=== PATIENT | female | born 1940 | race Two or more races ===

== ENCOUNTER 2018-06-24 17:58 | Observation (INO) | payer MEDICARE ==
[~2018-06-24] VITALS: Ht 149.9 cm; Wt 81.4 kg
[2018-06-24 19:27] LABS: BASOPHILS # (AUTO) 0.02 x10^3/uL (0-0.1); BASOPHILS % (AUTO) 0 % (0-1); EOSINOPHILS # (AUTO) 0.12 x10^3/uL (0-0.4); EOSINOPHILS % (AUTO) 2 % (1-7); LYMPHOCYTES # (AUTO) 1.94 x10^3/uL (1-3.4); LYMPHOCYTES % (AUTO) 31 % (22-44); MD NO; MEAN CORPUSCULAR HEMOGLOBIN 31.5 pg (27.0-34.8); MEAN CORPUSCULAR HGB CONC 34.4 g/dL (32.4-35.8); MEAN CORPUSCULAR VOLUME 91.6 fL (80-100); MEAN PLATELET VOLUME 9.2 fL (7.4-10.4); MONOCYTES # (AUTO) 0.43 x10^3/uL (0.2-0.8); MONOCYTES % (AUTO) 7 % (2-9); NEUTROPHILS # (AUTO) 3.78 x10^3/uL (1.8-6.8); NEUTROPHILS % (AUTO) 60 % (42-75); PLATELET COUNT 178 x10^3/uL (130-400)
[2018-06-24 19:33] LABS: ALBUMIN 3.6 g/dL (3.4-5.0); ANION GAP 9 mmol/L (5-15); CALCIUM 8.4 mg/dL (8.5-10.1); CHLORIDE 107 mmol/L (98-107); CREATININE 1.23 mg/dL (0.55-1.02)
[2018-06-24 19:36] LABS: ALANINE AMINOTRANSFERASE 24 U/L (12-78); ALKALINE PHOSPHATASE 94 U/L (45-117); BILIRUBIN,TOTAL 0.3 mg/dL (0.2-1.0); TOTAL PROTEIN 8.1 g/dL (6.4-8.2)
[2018-06-24 19:47] LABS: MICROSCOPIC AUTO
[2018-06-24 19:48] LABS: CULTURE INDICATED? YES
[2018-06-24] MEDS ORDERED: LEVO88TA4 PO (20:32)
[2018-06-24] MEDS ORDERED: AMLO2.5T3 PO (20:32)
[2018-06-24] MEDS ORDERED: DONE5TAB52 PO (20:32)
[2018-06-24] MEDS ORDERED: ESCI20TA PO (20:32)
[2018-06-24] MEDS ORDERED: MEMA10TA PO (20:32)
[2018-06-24] MEDS ORDERED: QUET200T PO (20:32)
[2018-06-24] MEDS ORDERED: [UNRECOGNIZED DRUG - OTHER] PO (20:43)
[2018-06-24] MEDS ORDERED: SODIUM CHLORIDE FLUSH 10ML SYR IVF PRN (21:00)
[2018-06-24 22:10] VITALS: BP 148/84
[2018-06-24] MEDS ORDERED: SODIUM CHLORIDE 0.9% 1,000 ML IV SCH (22:44)
[2018-06-24] MEDS ORDERED: BISACODYL 10 MG SUPP PR PRN (23:00)
[2018-06-24] MEDS ORDERED: POLYETHYLENE GLYCOL 17 GM PACKET PO PRN (23:00)
[2018-06-24] MEDS ORDERED: hydrALAzine 20 MG/ML, 1ML IVPush PRN (23:00)
[2018-06-24] MEDS ORDERED: DOCUSATE 100 MG CAPSULE PO PRN (23:00)
[2018-06-24] MEDS ORDERED: GABAPENTIN 300 MG CAPSULE PO PRN (23:00)
[2018-06-24] MEDS ORDERED: LABETALOL 5MG/ML, 20ML IVPush PRN (23:00)
[2018-06-24] MEDS: QUETIAPINE 200 MG TABLET PO SCH (23:20)
[2018-06-24] MEDS: MEMANTINE 10MG TABLET PO SCH (23:20)
[2018-06-24] MEDS: DONEPEZIL 5 MG TABLET PO SCH (23:20)
[2018-06-24 23:26] LABS: FREE T4 (FREE THYROXINE) 0.9 ng/dL (0.76-1.46); THYROID STIMULATING HORMONE 1.04 mIU/L (0.358-3.740)
[2018-06-25 01:23] VITALS: BP 109/67
[2018-06-25 05:33] LABS: CHOL/HDL RATIO 5.4; LDL/HDL RATIO 2.9 (0.5-3.0)
[2018-06-25 06:58] VITALS: BP 118/72
[2018-06-25] MEDS: AMLODIPINE 2.5 MG TABLET PO SCH (08:57)
[2018-06-25] MEDS: MEMANTINE 10MG TABLET PO SCH ×2 (08:57→20:21)
[2018-06-25] MEDS: TEMPLATE NON-FORMULARY MED. (Escitalopram Oxalate** 20 MG) HOMEMEDPO SCH (08:57)
[2018-06-25] MEDS: LEVOTHYROXINE 88 MCG TABLET PO SCH (08:57)
[2018-06-25 12:21] LABS: ANION GAP 9 mmol/L (5-15); CALCIUM 8.6 mg/dL (8.5-10.1); CHLORIDE 110 mmol/L (98-107)
[2018-06-25 12:23] LABS: CREATININE 1.08 mg/dL (0.55-1.02)
[2018-06-25 12:56] VITALS: BP 110/68
[2018-06-25 19:56] VITALS: BP 138/78
[2018-06-25] MEDS: QUETIAPINE 200 MG TABLET PO SCH (20:21)
[2018-06-25] MEDS: DONEPEZIL 5 MG TABLET PO SCH (20:21)
[2018-06-26 01:16] VITALS: BP 121/74
[2018-06-26 05:37] LABS: CHLORIDE 111 mmol/L (98-107)
[2018-06-26 05:46] LABS: ANION GAP 9 mmol/L (5-15); CALCIUM 8.3 mg/dL (8.5-10.1); CREATININE 1.02 mg/dL (0.55-1.02)
[2018-06-26] MEDS: LEVOTHYROXINE 88 MCG TABLET PO SCH (06:14)
[2018-06-26 07:02] VITALS: BP 107/67
[2018-06-26] MEDS: TEMPLATE NON-FORMULARY MED. (Escitalopram Oxalate** 20 MG) HOMEMEDPO SCH (09:00)
[2018-06-26] MEDS: MEMANTINE 10MG TABLET PO SCH ×2 (10:05→20:43)
[2018-06-26] MEDS: AMLODIPINE 2.5 MG TABLET PO SCH (10:05)
[2018-06-26 12:55] VITALS: BP 105/66
[2018-06-26 20:10] VITALS: BP 137/77
[2018-06-26] MEDS: DONEPEZIL 5 MG TABLET PO SCH (20:43)
[2018-06-26] MEDS: ATORVASTATIN 10 MG TABLET PO SCH (20:43)
[2018-06-26] MEDS: QUETIAPINE 200 MG TABLET PO SCH (20:43)
[2018-06-27 01:45] VITALS: BP 104/61
[2018-06-27 07:19] VITALS: BP 108/69
[2018-06-27] MEDS: LEVOTHYROXINE 88 MCG TABLET PO SCH (07:58)
[2018-06-27] MEDS: CITALOPRAM 20 MG TABLET PO SCH (08:00)
[2018-06-27] MEDS: MEMANTINE 10MG TABLET PO SCH ×3 (08:00→20:11)
[2018-06-27] MEDS: AMLODIPINE 2.5 MG TABLET PO SCH (08:02)
[2018-06-27] MEDS: ACETAMINOPHEN 325 MG TABLET PO PRN (08:55)
[2018-06-27 12:55] VITALS: BP 117/66
[2018-06-27 14:45] VITALS: BP 128/70
[2018-06-27 18:50] VITALS: BP 133/72
[2018-06-27] MEDS: DONEPEZIL 5 MG TABLET PO SCH ×2 (20:05→20:11)
[2018-06-27] MEDS: ATORVASTATIN 10 MG TABLET PO SCH (20:05)
[2018-06-27] MEDS: QUETIAPINE 200 MG TABLET PO SCH ×2 (20:05→20:11)
[2018-06-28 01:27] VITALS: BP 156/74
[2018-06-28 06:44] VITALS: BP 146/76
[2018-06-28] MEDS: LEVOTHYROXINE 88 MCG TABLET PO SCH (07:45)
[2018-06-28] MEDS: AMLODIPINE 2.5 MG TABLET PO SCH (07:46)
[2018-06-28] MEDS: MEMANTINE 10MG TABLET PO SCH ×2 (07:48→21:00)
[2018-06-28] MEDS: CITALOPRAM 20 MG TABLET PO SCH (07:48)
[2018-06-28 13:10] VITALS: BP 125/75
[2018-06-28 19:25] VITALS: BP 143/82
[2018-06-28] MEDS: ATORVASTATIN 10 MG TABLET PO SCH (20:58)
[2018-06-28] MEDS: DONEPEZIL 5 MG TABLET PO SCH (21:00)
[2018-06-28] MEDS: QUETIAPINE 200 MG TABLET PO SCH (21:00)
[2018-06-29 01:15] VITALS: BP 152/71
[2018-06-29] MEDS: AMLODIPINE 2.5 MG TABLET PO SCH (07:53)
[2018-06-29] MEDS: LEVOTHYROXINE 88 MCG TABLET PO SCH (07:53)
[2018-06-29] MEDS: CITALOPRAM 20 MG TABLET PO SCH (07:56)
[2018-06-29] MEDS: MEMANTINE 10MG TABLET PO SCH ×2 (07:56→20:28)
[2018-06-29 08:12] VITALS: BP 171/78
[2018-06-29] MEDS: CALCIUM CARBONATE 500 MG TAB.CHEW PO PRN ×2 (12:35→20:26)
[2018-06-29 12:50] VITALS: BP 146/73
[2018-06-29 18:53] VITALS: BP 136/75
[2018-06-29] MEDS: DONEPEZIL 5 MG TABLET PO SCH (20:28)
[2018-06-29] MEDS: QUETIAPINE 200 MG TABLET PO SCH (20:28)
[2018-06-29] MEDS: ATORVASTATIN 10 MG TABLET PO SCH (20:28)
[2018-06-30 01:15] VITALS: BP 108/67
[2018-06-30 06:55] VITALS: BP 117/60
[2018-06-30] MEDS: LEVOTHYROXINE 88 MCG TABLET PO SCH (07:53)
[2018-06-30] MEDS: AMLODIPINE 2.5 MG TABLET PO SCH (07:53)
[2018-06-30] MEDS: MEMANTINE 10MG TABLET PO SCH ×2 (07:53→20:02)
[2018-06-30] MEDS: CITALOPRAM 20 MG TABLET PO SCH (07:53)
[2018-06-30 12:40] VITALS: BP 128/69
[2018-06-30 19:24] VITALS: BP 116/71
[2018-06-30] MEDS: QUETIAPINE 200 MG TABLET PO SCH (20:02)
[2018-06-30] MEDS: DONEPEZIL 5 MG TABLET PO SCH (20:02)
[2018-06-30] MEDS: ATORVASTATIN 10 MG TABLET PO SCH (20:02)
[2018-07-01 01:05] VITALS: BP 121/60
[2018-07-01] MEDS: AMLODIPINE 2.5 MG TABLET PO SCH (08:14)
[2018-07-01] MEDS: LEVOTHYROXINE 88 MCG TABLET PO SCH (08:14)
[2018-07-01] MEDS: MEMANTINE 10MG TABLET PO SCH ×2 (08:14→22:19)
[2018-07-01 08:57] VITALS: BP 93/62
[2018-07-01 14:08] VITALS: BP 116/74
[2018-07-01 19:18] VITALS: BP 127/69
[2018-07-01] MEDS: QUETIAPINE 200 MG TABLET PO SCH (22:19)
[2018-07-01] MEDS: DONEPEZIL 5 MG TABLET PO SCH (22:19)
[2018-07-01] MEDS: ATORVASTATIN 10 MG TABLET PO SCH (22:19)
[2018-07-01] MEDS: CALCIUM CARBONATE 500 MG TAB.CHEW PO PRN (23:40)
[2018-07-02 00:17] VITALS: BP 101/52
[2018-07-02] MEDS: MEMANTINE 10MG TABLET PO SCH ×2 (08:39→21:32)
[2018-07-02] MEDS: AMLODIPINE 2.5 MG TABLET PO SCH (08:40)
[2018-07-02] MEDS: LEVOTHYROXINE 88 MCG TABLET PO SCH (08:40)
[2018-07-02 08:41] VITALS: BP 107/69
[2018-07-02 13:26] VITALS: BP 113/68
[2018-07-02 18:55] VITALS: BP 118/62
[2018-07-02] MEDS: DONEPEZIL 5 MG TABLET PO SCH (21:31)
[2018-07-02] MEDS: QUETIAPINE 200 MG TABLET PO SCH (21:31)
[2018-07-02] MEDS: ATORVASTATIN 10 MG TABLET PO SCH (21:31)
[2018-07-03 01:14] VITALS: BP 109/52
[2018-07-03 05:00] LABS: BASOPHILS # (AUTO) 0.03 x10^3/uL (0-0.1); BASOPHILS % (AUTO) 0 % (0-1); EOSINOPHILS # (AUTO) 0.42 x10^3/uL (0-0.4); EOSINOPHILS % (AUTO) 6 % (1-7); LYMPHOCYTES # (AUTO) 3.42 x10^3/uL (1-3.4); LYMPHOCYTES % (AUTO) 45 % (22-44); MD NO; MEAN CORPUSCULAR HEMOGLOBIN 31.4 pg (27.0-34.8); MEAN CORPUSCULAR VOLUME 92.2 fL (80-100); MEAN PLATELET VOLUME 9.4 fL (7.4-10.4); MONOCYTES # (AUTO) 0.55 x10^3/uL (0.2-0.8); MONOCYTES % (AUTO) 7 % (2-9); NEUTROPHILS # (AUTO) 3.21 x10^3/uL (1.8-6.8); NEUTROPHILS % (AUTO) 42 % (42-75); PLATELET COUNT 197 x10^3/uL (130-400); RED BLOOD COUNT 4.13 x10^6/uL (3.82-5.3); RED CELL DISTRIBUTION WIDTH 14.6 % (9.6-15.2)
[2018-07-03 05:08] LABS: ALBUMIN 3.5 g/dL (3.4-5.0); ANION GAP 10 mmol/L (5-15); CALCIUM 8.6 mg/dL (8.5-10.1); CHLORIDE 110 mmol/L (98-107)
[2018-07-03 05:09] LABS: CREATININE 1.14 mg/dL (0.55-1.02)
[2018-07-03 08:00] VITALS: BP 105/64
[2018-07-03] MEDS: AMLODIPINE 2.5 MG TABLET PO SCH (08:19)
[2018-07-03] MEDS: MEMANTINE 10MG TABLET PO SCH ×2 (08:19→21:05)
[2018-07-03] MEDS: LEVOTHYROXINE 88 MCG TABLET PO SCH (08:19)
[2018-07-03 15:26] VITALS: BP 116/72
[2018-07-03 19:09] VITALS: BP 125/71
[2018-07-03] MEDS: CALCIUM CARBONATE 500 MG TAB.CHEW PO PRN (21:04)
[2018-07-03] MEDS: QUETIAPINE 200 MG TABLET PO SCH (21:05)
[2018-07-03] MEDS: DONEPEZIL 5 MG TABLET PO SCH (21:05)
[2018-07-03] MEDS: ATORVASTATIN 10 MG TABLET PO SCH (21:05)
[2018-07-04 01:37] VITALS: BP 113/68
[2018-07-04 07:16] VITALS: BP 118/58
[2018-07-04] MEDS: AMLODIPINE 2.5 MG TABLET PO SCH (07:30)
[2018-07-04] MEDS: LEVOTHYROXINE 88 MCG TABLET PO SCH (07:30)
[2018-07-04] MEDS: MEMANTINE 10MG TABLET PO SCH ×2 (07:30→20:06)
[2018-07-04 12:11] VITALS: BP 141/76
[2018-07-04 19:07] VITALS: BP 121/72
[2018-07-04] MEDS: DONEPEZIL 5 MG TABLET PO SCH (20:06)
[2018-07-04] MEDS: ATORVASTATIN 10 MG TABLET PO SCH (20:06)
[2018-07-04] MEDS: QUETIAPINE 200 MG TABLET PO SCH (20:06)
[2018-07-05 01:44] VITALS: BP 126/60
[2018-07-05 06:54] VITALS: BP 118/61
[2018-07-05] MEDS: MEMANTINE 10MG TABLET PO SCH ×2 (07:53→21:04)
[2018-07-05] MEDS: AMLODIPINE 2.5 MG TABLET PO SCH (07:53)
[2018-07-05] MEDS: LEVOTHYROXINE 88 MCG TABLET PO SCH (07:53)
[2018-07-05] MEDS: PANTOPROZOLE 40MG TABLET PO SCH (10:33)
[2018-07-05] MEDS: LIDODERM 5% PATCH TD SCH (10:33)
[2018-07-05] MEDS: CALCIUM CARBONATE 500 MG TAB.CHEW PO PRN ×2 (11:12→19:26)
[2018-07-05 12:19] VITALS: BP 106/52
[2018-07-05 19:00] VITALS: BP 134/70
[2018-07-05] MEDS: ACETAMINOPHEN 325 MG TABLET PO PRN (19:26)
[2018-07-05] MEDS: ATORVASTATIN 10 MG TABLET PO SCH (21:03)
[2018-07-05] MEDS: QUETIAPINE 100MG TABLET PO SCH (21:04)
[2018-07-05] MEDS: DONEPEZIL 5 MG TABLET PO SCH (21:04)
[2018-07-06 01:30] VITALS: BP 111/55
[2018-07-06 07:50] VITALS: BP 105/60
[2018-07-06] MEDS: AMLODIPINE 2.5 MG TABLET PO SCH (08:33)
[2018-07-06] MEDS: PANTOPROZOLE 40MG TABLET PO SCH (08:33)
[2018-07-06] MEDS: MEMANTINE 10MG TABLET PO SCH ×2 (08:34→19:55)
[2018-07-06] MEDS: LEVOTHYROXINE 88 MCG TABLET PO SCH (08:34)
[2018-07-06] MEDS: LIDODERM 5% PATCH TD SCH (08:35)
[2018-07-06 08:37] VITALS: BP 116/66
[2018-07-06 12:20] VITALS: BP 116/53
[2018-07-06 19:05] VITALS: BP 126/68
[2018-07-06] MEDS: QUETIAPINE 100MG TABLET PO SCH (19:54)
[2018-07-06] MEDS: DONEPEZIL 5 MG TABLET PO SCH (19:55)
[2018-07-06] MEDS: ATORVASTATIN 10 MG TABLET PO SCH (19:55)
[2018-07-07 01:46] VITALS: BP 120/74
[2018-07-07 07:27] VITALS: BP 134/78
[2018-07-07] MEDS: LIDODERM 5% PATCH TD SCH (09:00)
[2018-07-07] MEDS: AMLODIPINE 2.5 MG TABLET PO SCH (09:05)
[2018-07-07] MEDS: LEVOTHYROXINE 88 MCG TABLET PO SCH (09:05)
[2018-07-07] MEDS: PANTOPROZOLE 40MG TABLET PO SCH (09:06)
[2018-07-07] MEDS: MEMANTINE 10MG TABLET PO SCH ×2 (09:06→21:36)
[2018-07-07 13:16] VITALS: BP 126/71
[2018-07-07 19:03] VITALS: BP 121/64
[2018-07-07] MEDS: DONEPEZIL 5 MG TABLET PO SCH (21:36)
[2018-07-07] MEDS: ATORVASTATIN 10 MG TABLET PO SCH (21:36)
[2018-07-07] MEDS: QUETIAPINE 100MG TABLET PO SCH (21:36)
[2018-07-08 01:38] VITALS: BP 98/53
[2018-07-08 07:47] VITALS: BP 114/68
[2018-07-08] MEDS: AMLODIPINE 2.5 MG TABLET PO SCH (08:43)
[2018-07-08] MEDS: PANTOPROZOLE 40MG TABLET PO SCH (08:43)
[2018-07-08] MEDS: LEVOTHYROXINE 88 MCG TABLET PO SCH (08:43)
[2018-07-08] MEDS: MEMANTINE 10MG TABLET PO SCH ×3 (08:43→20:13)
[2018-07-08] MEDS: LIDODERM 5% PATCH TD SCH (08:44)
[2018-07-08 12:56] VITALS: BP 119/72
[2018-07-08 18:58] VITALS: BP 127/58
[2018-07-08] MEDS: QUETIAPINE 100MG TABLET PO SCH ×2 (20:10→20:13)
[2018-07-08] MEDS: ATORVASTATIN 10 MG TABLET PO SCH (20:10)
[2018-07-08] MEDS: DONEPEZIL 5 MG TABLET PO SCH ×2 (20:10→20:13)
[2018-07-09 00:39] VITALS: BP 134/80
[2018-07-09 07:04] VITALS: BP 138/74
[2018-07-09] MEDS: PANTOPROZOLE 40MG TABLET PO SCH (09:09)
[2018-07-09] MEDS: MEMANTINE 10MG TABLET PO SCH ×2 (09:10→20:31)
[2018-07-09] MEDS: AMLODIPINE 2.5 MG TABLET PO SCH (09:10)
[2018-07-09] MEDS: LEVOTHYROXINE 88 MCG TABLET PO SCH (09:10)
[2018-07-09] MEDS: LIDODERM 5% PATCH TD SCH (09:10)
[2018-07-09 12:28] VITALS: BP 127/73
[2018-07-09 19:08] VITALS: BP 128/75
[2018-07-09] MEDS: ATORVASTATIN 10 MG TABLET PO SCH (20:31)
[2018-07-09] MEDS: QUETIAPINE 100MG TABLET PO SCH (20:31)
[2018-07-09] MEDS: DONEPEZIL 5 MG TABLET PO SCH (20:31)
[2018-07-10 01:31] VITALS: BP 127/64
[2018-07-10 07:04] VITALS: BP 80/44
[2018-07-10 07:21] VITALS: BP 103/63
[2018-07-10] MEDS: LEVOTHYROXINE 88 MCG TABLET PO SCH (07:30)
[2018-07-10 08:57] VITALS: BP 92/49
[2018-07-10] MEDS: MEMANTINE 10MG TABLET PO SCH ×2 (08:59→20:49)
[2018-07-10] MEDS: PANTOPROZOLE 40MG TABLET PO SCH (08:59)
[2018-07-10] MEDS: AMLODIPINE 2.5 MG TABLET PO SCH (09:00)
[2018-07-10 13:40] VITALS: BP 118/56
[2018-07-10 18:36] VITALS: BP 98/64
[2018-07-10] MEDS: ATORVASTATIN 10 MG TABLET PO SCH (20:49)
[2018-07-10] MEDS: DONEPEZIL 5 MG TABLET PO SCH (20:49)
[2018-07-10] MEDS: QUETIAPINE 100MG TABLET PO SCH (20:49)
[2018-07-10] MEDS: LIDODERM 5% PATCH TD SCH (20:50)
[2018-07-11 01:07] VITALS: BP 107/62
[2018-07-11 06:50] VITALS: BP 120/72
[2018-07-11] MEDS: AMLODIPINE 2.5 MG TABLET PO SCH (07:40)
[2018-07-11] MEDS: LEVOTHYROXINE 88 MCG TABLET PO SCH (07:40)
[2018-07-11] MEDS: PANTOPROZOLE 40MG TABLET PO SCH (07:40)
[2018-07-11] MEDS: MEMANTINE 10MG TABLET PO SCH ×2 (07:40→21:33)
[2018-07-11 13:35] VITALS: BP 113/59
[2018-07-11 19:22] VITALS: BP 126/69
[2018-07-11] MEDS: LIDODERM 5% PATCH TD SCH (21:29)
[2018-07-11] MEDS: DONEPEZIL 5 MG TABLET PO SCH (21:30)
[2018-07-11] MEDS: ATORVASTATIN 10 MG TABLET PO SCH (21:30)
[2018-07-11] MEDS: QUETIAPINE 100MG TABLET PO SCH (21:30)
[2018-07-12 02:00] VITALS: BP 109/55
[2018-07-12 06:56] VITALS: BP 111/70
[2018-07-12] MEDS: LEVOTHYROXINE 88 MCG TABLET PO SCH (08:17)
[2018-07-12] MEDS: PANTOPROZOLE 40MG TABLET PO SCH (08:17)
[2018-07-12] MEDS: MEMANTINE 10MG TABLET PO SCH ×2 (08:17→21:46)
[2018-07-12] MEDS: AMLODIPINE 2.5 MG TABLET PO SCH (08:17)
[2018-07-12 12:02] VITALS: BP 134/74
[2018-07-12 20:25] VITALS: BP 130/76
[2018-07-12] MEDS: QUETIAPINE 100MG TABLET PO SCH (21:46)
[2018-07-12] MEDS: ATORVASTATIN 10 MG TABLET PO SCH (21:46)
[2018-07-12] MEDS: DONEPEZIL 5 MG TABLET PO SCH (21:47)
[2018-07-12] MEDS: LIDODERM 5% PATCH TD SCH (21:48)
[2018-07-13 01:20] VITALS: BP 156/75
[2018-07-13 06:50] VITALS: BP 125/74
[2018-07-13] MEDS: MEMANTINE 10MG TABLET PO SCH ×2 (07:45→19:47)
[2018-07-13] MEDS: LEVOTHYROXINE 88 MCG TABLET PO SCH (07:45)
[2018-07-13] MEDS: PANTOPROZOLE 40MG TABLET PO SCH (07:45)
[2018-07-13] MEDS: AMLODIPINE 2.5 MG TABLET PO SCH (07:45)
[2018-07-13 12:59] VITALS: BP 103/61
[2018-07-13 19:34] VITALS: BP 130/78
[2018-07-13] MEDS: LIDODERM 5% PATCH TD SCH (19:46)
[2018-07-13] MEDS: ATORVASTATIN 10 MG TABLET PO SCH (19:47)
[2018-07-13] MEDS: QUETIAPINE 100MG TABLET PO SCH (19:47)
[2018-07-13] MEDS: DONEPEZIL 5 MG TABLET PO SCH (19:47)
[2018-07-14 01:23] VITALS: BP 137/73
[2018-07-14 06:14] VITALS: BP 128/72
[2018-07-14] MEDS: MEMANTINE 10MG TABLET PO SCH ×3 (08:21→20:46)
[2018-07-14] MEDS: PANTOPROZOLE 40MG TABLET PO SCH (08:21)
[2018-07-14] MEDS: AMLODIPINE 2.5 MG TABLET PO SCH (08:21)
[2018-07-14] MEDS: LEVOTHYROXINE 88 MCG TABLET PO SCH (08:21)
[2018-07-14 12:58] VITALS: BP 104/64
[2018-07-14 18:50] VITALS: BP 129/74
[2018-07-14] MEDS: ATORVASTATIN 10 MG TABLET PO SCH (20:44)
[2018-07-14] MEDS: DONEPEZIL 5 MG TABLET PO SCH ×2 (20:44→20:46)
[2018-07-14] MEDS: QUETIAPINE 100MG TABLET PO SCH (20:44)
[2018-07-14] MEDS: LIDODERM 5% PATCH TD SCH (20:45)
[2018-07-15 01:36] VITALS: BP 122/69
[2018-07-15 07:09] VITALS: BP 137/78
[2018-07-15] MEDS: LEVOTHYROXINE 88 MCG TABLET PO SCH (07:29)
[2018-07-15] MEDS: PANTOPROZOLE 40MG TABLET PO SCH (07:29)
[2018-07-15] MEDS: MEMANTINE 10MG TABLET PO SCH ×2 (07:29→21:20)
[2018-07-15] MEDS: AMLODIPINE 2.5 MG TABLET PO SCH (07:29)
[2018-07-15 12:53] VITALS: BP 124/71
[2018-07-15 19:50] VITALS: BP 133/76
[2018-07-15] MEDS: LIDODERM 5% PATCH TD SCH (21:20)
[2018-07-15] MEDS: ATORVASTATIN 10 MG TABLET PO SCH (21:20)
[2018-07-15] MEDS: QUETIAPINE 100MG TABLET PO SCH (21:20)
[2018-07-15] MEDS: DONEPEZIL 5 MG TABLET PO SCH (21:20)
[2018-07-16 03:05] VITALS: BP 115/67
[2018-07-16] MEDS: PANTOPROZOLE 40MG TABLET PO SCH (07:53)
[2018-07-16] MEDS: MEMANTINE 10MG TABLET PO SCH ×2 (07:53→20:11)
[2018-07-16] MEDS: AMLODIPINE 2.5 MG TABLET PO SCH (07:53)
[2018-07-16] MEDS: LEVOTHYROXINE 88 MCG TABLET PO SCH (07:54)
[2018-07-16 07:56] VITALS: BP 122/76
[2018-07-16 12:56] VITALS: BP 124/75
[2018-07-16 19:12] VITALS: BP 135/81
[2018-07-16] MEDS: LIDODERM 5% PATCH TD SCH (20:09)
[2018-07-16] MEDS: ATORVASTATIN 10 MG TABLET PO SCH (20:11)
[2018-07-16] MEDS: DONEPEZIL 5 MG TABLET PO SCH (20:11)
[2018-07-16] MEDS: QUETIAPINE 100MG TABLET PO SCH (20:54)
[2018-07-17 02:56] VITALS: BP 116/69
[2018-07-17 07:39] VITALS: BP 133/72
[2018-07-17] MEDS: LEVOTHYROXINE 88 MCG TABLET PO SCH (09:51)
[2018-07-17] MEDS: AMLODIPINE 2.5 MG TABLET PO SCH (09:51)
[2018-07-17] MEDS: PANTOPROZOLE 40MG TABLET PO SCH (09:51)
[2018-07-17] MEDS: MEMANTINE 10MG TABLET PO SCH ×2 (09:51→19:48)
[2018-07-17 13:05] VITALS: BP 118/74
[2018-07-17 18:55] VITALS: BP 126/76
[2018-07-17] MEDS: ATORVASTATIN 10 MG TABLET PO SCH (19:48)
[2018-07-17] MEDS: QUETIAPINE 100MG TABLET PO SCH (19:48)
[2018-07-17] MEDS: DONEPEZIL 5 MG TABLET PO SCH (19:52)
[2018-07-17] MEDS: LIDODERM 5% PATCH TD SCH (19:52)
[2018-07-18 01:48] VITALS: BP 135/87
[2018-07-18 07:48] VITALS: BP 114/68
[2018-07-18] MEDS: LEVOTHYROXINE 88 MCG TABLET PO SCH (07:57)
[2018-07-18] MEDS: MEMANTINE 10MG TABLET PO SCH ×2 (07:57→19:59)
[2018-07-18] MEDS: AMLODIPINE 2.5 MG TABLET PO SCH (07:57)
[2018-07-18] MEDS: PANTOPROZOLE 40MG TABLET PO SCH (07:57)
[2018-07-18 13:35] VITALS: BP 100/62
[2018-07-18 19:54] VITALS: BP 127/75
[2018-07-18] MEDS: QUETIAPINE 100MG TABLET PO SCH (19:59)
[2018-07-18] MEDS: DONEPEZIL 5 MG TABLET PO SCH (19:59)
[2018-07-18] MEDS: ATORVASTATIN 10 MG TABLET PO SCH (19:59)
[2018-07-18] MEDS: LIDODERM 5% PATCH TD SCH (20:08)
[2018-07-19 01:34] VITALS: BP 106/70
[2018-07-19 07:00] VITALS: BP 131/70
[2018-07-19] MEDS: AMLODIPINE 2.5 MG TABLET PO SCH (07:55)
[2018-07-19] MEDS: LEVOTHYROXINE 88 MCG TABLET PO SCH (07:55)
[2018-07-19] MEDS: MEMANTINE 10MG TABLET PO SCH ×2 (07:55→20:16)
[2018-07-19] MEDS: PANTOPROZOLE 40MG TABLET PO SCH (07:55)
[2018-07-19 14:00] VITALS: BP 114/71
[2018-07-19 18:50] VITALS: BP 100/82
[2018-07-19] MEDS: DONEPEZIL 5 MG TABLET PO SCH (20:16)
[2018-07-19] MEDS: LIDODERM 5% PATCH TD SCH (20:16)
[2018-07-19] MEDS: ATORVASTATIN 10 MG TABLET PO SCH (20:16)
[2018-07-19] MEDS: QUETIAPINE 200 MG TABLET PO SCH (20:17)
[2018-07-20 01:07] VITALS: BP 128/77
[2018-07-20 06:52] VITALS: BP 127/76
[2018-07-20] MEDS: LEVOTHYROXINE 88 MCG TABLET PO SCH (08:03)
[2018-07-20] MEDS: PANTOPROZOLE 40MG TABLET PO SCH (08:03)
[2018-07-20] MEDS: MEMANTINE 10MG TABLET PO SCH ×2 (08:03→20:44)
[2018-07-20] MEDS: AMLODIPINE 2.5 MG TABLET PO SCH (08:03)
[2018-07-20 09:25] LABS: ANION GAP 10 mmol/L (5-15); CALCIUM 8.4 mg/dL (8.5-10.1); CHLORIDE 110 mmol/L (98-107); CREATININE 1.13 mg/dL (0.55-1.02)
[2018-07-20] MEDS ORDERED: ACETAMINOPHEN 325 MG TABLET PO PRN (11:00)
[2018-07-20 13:29] VITALS: BP 134/69
[2018-07-20 19:14] VITALS: BP 141/83
[2018-07-20] MEDS: LIDODERM 5% PATCH TD SCH (20:45)
[2018-07-20] MEDS: DONEPEZIL 5 MG TABLET PO SCH (20:45)
[2018-07-20] MEDS: ATORVASTATIN 10 MG TABLET PO SCH (20:45)
[2018-07-20] MEDS: QUETIAPINE 200 MG TABLET PO SCH (20:45)
[2018-07-21 00:53] VITALS: BP 121/66
[2018-07-21 07:11] VITALS: BP 97/62
[2018-07-21] MEDS: AMLODIPINE 2.5 MG TABLET PO SCH (07:57)
[2018-07-21] MEDS: MEMANTINE 10MG TABLET PO SCH ×2 (08:00→20:04)
[2018-07-21] MEDS: LEVOTHYROXINE 88 MCG TABLET PO SCH (08:00)
[2018-07-21] MEDS: PANTOPROZOLE 40MG TABLET PO SCH (08:02)
[2018-07-21 13:59] VITALS: BP 120/74
[2018-07-21 18:53] VITALS: BP 130/73
[2018-07-21] MEDS: QUETIAPINE 200 MG TABLET PO SCH (20:04)
[2018-07-21] MEDS: DONEPEZIL 5 MG TABLET PO SCH (20:04)
[2018-07-21] MEDS: ATORVASTATIN 10 MG TABLET PO SCH (20:05)
[2018-07-21] MEDS: LIDODERM 5% PATCH TD SCH (20:05)
[2018-07-22 01:33] VITALS: BP 113/64
[2018-07-22 05:44] LABS: ALBUMIN 3.1 g/dL (3.4-5.0); ANION GAP 6 mmol/L (5-15); CALCIUM 8.4 mg/dL (8.5-10.1); CHLORIDE 110 mmol/L (98-107)
[2018-07-22 06:54] VITALS: BP 118/71
[2018-07-22] MEDS: MEMANTINE 10MG TABLET PO SCH ×2 (08:00→20:36)
[2018-07-22] MEDS: PANTOPROZOLE 40MG TABLET PO SCH (08:00)
[2018-07-22] MEDS: LEVOTHYROXINE 88 MCG TABLET PO SCH (08:00)
[2018-07-22] MEDS: AMLODIPINE 2.5 MG TABLET PO SCH (08:00)
[2018-07-22 14:36] VITALS: BP 121/73
[2018-07-22] MEDS ORDERED: QUETIAPINE 25MG TABLET PO PRN (15:00)
[2018-07-22 19:49] VITALS: BP 145/65
[2018-07-22] MEDS: QUETIAPINE 200 MG TABLET PO SCH (20:35)
[2018-07-22] MEDS: ATORVASTATIN 10 MG TABLET PO SCH (20:36)
[2018-07-22] MEDS: DONEPEZIL 5 MG TABLET PO SCH (20:36)
[2018-07-22] MEDS: LIDODERM 5% PATCH TD SCH (20:37)
[2018-07-23 03:16] VITALS: BP 111/69
[2018-07-23 08:55] VITALS: BP 121/73
[2018-07-23] MEDS: LEVOTHYROXINE 88 MCG TABLET PO SCH (09:52)
[2018-07-23] MEDS: AMLODIPINE 2.5 MG TABLET PO SCH (09:53)
[2018-07-23] MEDS: MEMANTINE 10MG TABLET PO SCH ×2 (09:53→20:44)
[2018-07-23] MEDS: PANTOPROZOLE 40MG TABLET PO SCH (09:53)
[2018-07-23 12:55] VITALS: BP 109/71
[2018-07-23 18:34] VITALS: BP 117/74
[2018-07-23] MEDS: LIDODERM 5% PATCH TD SCH (20:43)
[2018-07-23] MEDS: QUETIAPINE 200 MG TABLET PO SCH (20:43)
[2018-07-23] MEDS: ATORVASTATIN 10 MG TABLET PO SCH (20:44)
[2018-07-23] MEDS: DONEPEZIL 5 MG TABLET PO SCH (20:45)
[2018-07-24 00:21] VITALS: BP 121/71
[2018-07-24] MEDS: PANTOPROZOLE 40MG TABLET PO SCH (07:57)
[2018-07-24] MEDS: LEVOTHYROXINE 88 MCG TABLET PO SCH (07:57)
[2018-07-24 08:10] VITALS: BP 125/88
[2018-07-24] MEDS: MEMANTINE 10MG TABLET PO SCH ×2 (09:00→21:50)
[2018-07-24 09:02] VITALS: BP 105/65
[2018-07-24] MEDS: AMLODIPINE 2.5 MG TABLET PO SCH (09:08)
[2018-07-24 13:00] VITALS: BP 107/64
[2018-07-24 20:38] VITALS: BP 110/72
[2018-07-24] MEDS: ATORVASTATIN 10 MG TABLET PO SCH (21:50)
[2018-07-24] MEDS: QUETIAPINE 200 MG TABLET PO SCH (21:50)
[2018-07-24] MEDS: DONEPEZIL 5 MG TABLET PO SCH (21:51)
[2018-07-24] MEDS: LIDODERM 5% PATCH TD SCH (21:54)
[2018-07-25 02:19] VITALS: BP 124/67
[2018-07-25 07:15] VITALS: BP 102/63
[2018-07-25 07:58] VITALS: BP 123/70
[2018-07-25] MEDS: AMLODIPINE 2.5 MG TABLET PO SCH (07:59)
[2018-07-25] MEDS: MEMANTINE 10MG TABLET PO SCH ×2 (07:59→20:04)
[2018-07-25] MEDS: PANTOPROZOLE 40MG TABLET PO SCH (08:00)
[2018-07-25] MEDS: LEVOTHYROXINE 88 MCG TABLET PO SCH (08:00)
[2018-07-25 14:20] VITALS: BP 128/75
[2018-07-25 19:24] VITALS: BP 90/40
[2018-07-25 19:43] VITALS: BP 126/75
[2018-07-25] MEDS: QUETIAPINE 200 MG TABLET PO SCH (20:04)
[2018-07-25] MEDS: ATORVASTATIN 10 MG TABLET PO SCH (20:04)
[2018-07-25] MEDS: DONEPEZIL 5 MG TABLET PO SCH (20:05)
[2018-07-25] MEDS: LIDODERM 5% PATCH TD SCH (20:05)
[2018-07-26 01:22] VITALS: BP 121/72
[2018-07-26 07:05] VITALS: BP 111/69
[2018-07-26] MEDS: MEMANTINE 10MG TABLET PO SCH ×2 (08:21→21:26)
[2018-07-26] MEDS: PANTOPROZOLE 40MG TABLET PO SCH (08:21)
[2018-07-26] MEDS: AMLODIPINE 2.5 MG TABLET PO SCH (08:21)
[2018-07-26] MEDS: LEVOTHYROXINE 88 MCG TABLET PO SCH (08:22)
[2018-07-26 14:20] VITALS: BP 112/70
[2018-07-26 19:25] VITALS: BP 125/75
[2018-07-26] MEDS: QUETIAPINE 200 MG TABLET PO SCH (21:26)
[2018-07-26] MEDS: DONEPEZIL 5 MG TABLET PO SCH (21:26)
[2018-07-26] MEDS: ATORVASTATIN 10 MG TABLET PO SCH (21:26)
[2018-07-26] MEDS: LIDODERM 5% PATCH TD SCH (21:27)
[2018-07-27 00:52] VITALS: BP 104/68
[2018-07-27 07:45] VITALS: BP 124/83
[2018-07-27] MEDS: AMLODIPINE 2.5 MG TABLET PO SCH (07:49)
[2018-07-27] MEDS: LEVOTHYROXINE 88 MCG TABLET PO SCH (07:49)
[2018-07-27] MEDS: PANTOPROZOLE 40MG TABLET PO SCH (07:49)
[2018-07-27] MEDS: MEMANTINE 10MG TABLET PO SCH ×2 (07:49→20:00)
[2018-07-27 13:35] VITALS: BP 101/65
[2018-07-27] MEDS: METOPROLOL SUCCINATE 25 MG TAB.ER.24H PO SCH (13:37)
[2018-07-27] MEDS: QUETIAPINE 200 MG TABLET PO SCH (20:00)
[2018-07-27] MEDS: DONEPEZIL 5 MG TABLET PO SCH (20:00)
[2018-07-27] MEDS: ATORVASTATIN 10 MG TABLET PO SCH (20:00)
[2018-07-27] MEDS: LIDODERM 5% PATCH TD SCH (20:01)
[2018-07-27 20:14] VITALS: BP 133/77
[2018-07-28 00:57] VITALS: BP 123/81
[2018-07-28] MEDS: METOPROLOL SUCCINATE 25 MG TAB.ER.24H PO SCH (06:08)
[2018-07-28 07:17] VITALS: BP 116/69
[2018-07-28] MEDS: MEMANTINE 10MG TABLET PO SCH ×2 (07:21→19:52)
[2018-07-28] MEDS: PANTOPROZOLE 40MG TABLET PO SCH (07:21)
[2018-07-28] MEDS: LEVOTHYROXINE 88 MCG TABLET PO SCH (07:21)
[2018-07-28] MEDS: AMLODIPINE 2.5 MG TABLET PO SCH (07:21)
[2018-07-28 14:00] VITALS: BP 98/57
[2018-07-28] MEDS: LIDODERM 5% PATCH TD SCH (19:52)
[2018-07-28] MEDS: QUETIAPINE 200 MG TABLET PO SCH (19:52)
[2018-07-28] MEDS: ATORVASTATIN 10 MG TABLET PO SCH (19:52)
[2018-07-28] MEDS: DONEPEZIL 5 MG TABLET PO SCH (19:52)
[2018-07-28 20:32] VITALS: BP 128/76
[2018-07-29 02:47] VITALS: BP 105/66
[2018-07-29] MEDS: METOPROLOL SUCCINATE 25 MG TAB.ER.24H PO SCH (05:26)
[2018-07-29 06:26] LABS: ANION GAP 8 mmol/L (5-15); CALCIUM 8.3 mg/dL (8.5-10.1); CHLORIDE 111 mmol/L (98-107)
[2018-07-29 07:19] VITALS: BP 125/84
[2018-07-29] MEDS: PANTOPROZOLE 40MG TABLET PO SCH (08:52)
[2018-07-29] MEDS: LEVOTHYROXINE 88 MCG TABLET PO SCH (08:52)
[2018-07-29] MEDS: AMLODIPINE 2.5 MG TABLET PO SCH (08:52)
[2018-07-29] MEDS: MEMANTINE 10MG TABLET PO SCH ×2 (08:53→20:09)
[2018-07-29] MEDS ORDERED: QUET200T PO (10:59)
[2018-07-29] MEDS ORDERED: ATOR10TA9 PO (10:59)
[2018-07-29] MEDS ORDERED: CALC200T24 PO (10:59)
[2018-07-29] MEDS ORDERED: QUET25TA PO (10:59)
[2018-07-29] MEDS ORDERED: GABA300C10 PO (10:59)
[2018-07-29] MEDS ORDERED: LIDO700A20 TD (10:59)
[2018-07-29] MEDS ORDERED: PANT40TA5 PO (10:59)
[2018-07-29] MEDS ORDERED: POLY17PO5 PO (10:59)
[2018-07-29] MEDS ORDERED: METO25TA91 PO (10:59)
[2018-07-29] MEDS ORDERED: LEVO88TA4 PO (11:11)
[2018-07-29 13:55] VITALS: BP 124/72
[2018-07-29 20:06] VITALS: BP 134/72
[2018-07-29] MEDS: DONEPEZIL 5 MG TABLET PO SCH (20:09)
[2018-07-29] MEDS: ATORVASTATIN 10 MG TABLET PO SCH (20:09)
[2018-07-29] MEDS: LIDODERM 5% PATCH TD SCH (20:09)
[2018-07-29] MEDS: QUETIAPINE 200 MG TABLET PO SCH (20:09)
[2018-07-30 00:47] VITALS: BP 146/81
[2018-07-30] MEDS: METOPROLOL SUCCINATE 25 MG TAB.ER.24H PO SCH (05:29)
[2018-07-30 07:26] VITALS: BP 121/59
[2018-07-30] MEDS: PANTOPROZOLE 40MG TABLET PO SCH (09:54)
[2018-07-30] MEDS: MEMANTINE 10MG TABLET PO SCH ×2 (09:54→21:11)
[2018-07-30] MEDS: LEVOTHYROXINE 88 MCG TABLET PO SCH (09:54)
[2018-07-30] MEDS: AMLODIPINE 2.5 MG TABLET PO SCH (09:54)
[2018-07-30 10:54] LABS: ANION GAP 9 mmol/L (5-15); CALCIUM 8.3 mg/dL (8.5-10.1); CHLORIDE 109 mmol/L (98-107); CREATININE 1.17 mg/dL (0.55-1.02)
[2018-07-30 14:56] VITALS: BP 103/65
[2018-07-30 19:16] VITALS: BP 104/86
[2018-07-30] MEDS: QUETIAPINE 200 MG TABLET PO SCH (21:11)
[2018-07-30] MEDS: DONEPEZIL 5 MG TABLET PO SCH (21:11)
[2018-07-30] MEDS: ATORVASTATIN 10 MG TABLET PO SCH (21:11)
[2018-07-30] MEDS: LIDODERM 5% PATCH TD SCH (21:12)
[2018-07-31 01:01] VITALS: BP 112/56
[2018-07-31] MEDS: METOPROLOL SUCCINATE 25 MG TAB.ER.24H PO SCH (05:11)
[2018-07-31 06:59] VITALS: BP 126/64
[2018-07-31] MEDS: PANTOPROZOLE 40MG TABLET PO SCH (09:30)
[2018-07-31] MEDS: MEMANTINE 10MG TABLET PO SCH ×2 (09:30→21:11)
[2018-07-31] MEDS: AMLODIPINE 2.5 MG TABLET PO SCH (09:30)
[2018-07-31] MEDS: LEVOTHYROXINE 88 MCG TABLET PO SCH (09:30)
[2018-07-31 14:16] LABS: TUBERCULIN 48 HOUR READ 0 mm (< 5)
[2018-07-31 14:54] VITALS: BP 101/62
[2018-07-31 19:12] VITALS: BP 103/64
[2018-07-31] MEDS: ATORVASTATIN 10 MG TABLET PO SCH (19:27)
[2018-07-31] MEDS: LIDODERM 5% PATCH TD SCH (19:27)
[2018-07-31] MEDS: DONEPEZIL 5 MG TABLET PO SCH (21:11)
[2018-07-31] MEDS: QUETIAPINE 200 MG TABLET PO SCH (21:11)
[2018-08-01 01:47] VITALS: BP 117/70
[2018-08-01] MEDS: METOPROLOL SUCCINATE 25 MG TAB.ER.24H PO SCH (05:22)
[2018-08-01 07:19] VITALS: BP 133/78
[2018-08-01] MEDS: MEMANTINE 10MG TABLET PO SCH ×2 (11:22→20:33)
[2018-08-01] MEDS: LEVOTHYROXINE 88 MCG TABLET PO SCH (11:22)
[2018-08-01] MEDS: PANTOPROZOLE 40MG TABLET PO SCH (11:22)
[2018-08-01] MEDS: AMLODIPINE 2.5 MG TABLET PO SCH (11:22)
[2018-08-01 12:43] VITALS: BP 131/74
[2018-08-01 19:27] VITALS: BP 145/78
[2018-08-01] MEDS: QUETIAPINE 200 MG TABLET PO SCH (20:33)
[2018-08-01] MEDS: ATORVASTATIN 10 MG TABLET PO SCH (20:33)
[2018-08-01] MEDS: DONEPEZIL 5 MG TABLET PO SCH (20:33)
[2018-08-01] MEDS: LIDODERM 5% PATCH TD SCH (20:34)
[2018-08-02 01:10] VITALS: BP 109/60
[2018-08-02] MEDS: METOPROLOL SUCCINATE 25 MG TAB.ER.24H PO SCH (05:20)
[2018-08-02 06:59] VITALS: BP 123/78
[2018-08-02] MEDS: AMLODIPINE 2.5 MG TABLET PO SCH (07:29)
[2018-08-02] MEDS: MEMANTINE 10MG TABLET PO SCH (07:29)
[2018-08-02] MEDS: PANTOPROZOLE 40MG TABLET PO SCH (07:29)
[2018-08-02] MEDS: LEVOTHYROXINE 88 MCG TABLET PO SCH (07:29)
== END 2018-08-02 10:29 ==
LOC: EDBD 17:58 → ED 20:20 → INTOOBSV 20:30 → EDIP 20:30 → OBSVTOIN 20:30 → 3NE 22:02
PROVIDERS: ADMIT Internal Medicine; ATTEND Family Medicine
DX: G30.1 Alzheimer's disease with late onset (principal); N17.0 Acute kidney failure with tubular necrosis; F02.81 Dementia in other diseases classified elsewhere, unspecified severity, with behavioral disturbance; F31.9 Bipolar disorder, unspecified; G89.29 Other chronic pain; F20.9 Schizophrenia, unspecified; E03.9 Hypothyroidism, unspecified; E78.1 Pure hyperglyceridemia; Z90.710 Acquired absence of both cervix and uterus; Z91.83 Wandering in diseases classified elsewhere; Z99.3 Dependence on wheelchair
CPT/HCPCS: 36415; 71045; 80048; 80053; 80061; 81001; 82040; 83036; 83735; 84439; 84443; 85025; 86580; 87086; 92523; 97127; 97163; 99285; G0378; G0515; G8978; G8979; G8980; J2060; J7030